=== PATIENT | female | born 1950 | race Caucasian/White ===

== ENCOUNTER → 2016-05-21 | Outpatient (CLI) | payer OTHER ==
--- NOTE | 2016-05-21 14:59 | MAMMOGRAPHY REPORT ---
BILATERAL DIGITAL SCREENING MAMMOGRAM TOMOSYNTHESIS WITH CAD: 05/21/2016 CLINICAL HISTORY: Routine screening examination. TECHNIQUE: Breast tomosynthesis in addition to standard 2D mammography was performed. Current study was also evaluated with a Computer Aided Detection (CAD) system. COMPARISON: Comparison is made to exams dated: 05/17/2015 mammogram, 05/08/2013 mammogram, 04/27/2010 mammogram, 05/06/2012 mammogram, 05/01/2011 mammogram, and 04/25/2009 mammogram - [facility]. BREAST COMPOSITION: There are scattered areas of fibroglandular density in both breasts. FINDINGS: There is there is a 3.8 mm nodular asymmetry in the medial, middle one third of the right breast, only seen on the CC view, for which additional spot compression tomosynthesis views and pos sibly ultrasound are recommended. No other suspicious mass, architectural distortion or cluster of microcalcifications is seen bilater ally. IMPRESSION: ACR BI-RADS CATEGORY 0: INCOMPLETE EVALUATION: NEED ADDITIONAL IMAGING EVALUATION The 3.8 mm nodular asymmetry in the medial right breast needs additional evaluation. The patient will be called to schedule an appointment. Approximately 10% of breast cancers are not detected with mammography. A negative mammographic repor t should not delay biopsy if a clinically suggestive mass is present. Antoinette Bradford M.D. ay/:05/21/2016 08:25:35 Oval Or Circular Glass Cutter: Inessa MORALES)(Abdoulaye), [facility] letter sent: Addl Imaging 0 BI-RADS Code: ACR BI-RADS Category 0: Incomplete Evaluation: Need Additional Imaging Evaluation
== END | disposition home or self-care (01) ==
LOC: C.MAMM 07:44
PROVIDERS: ATTEND Obstetrics & Gynecology
DX: Z12.31 Encounter for screening mammogram for malignant neoplasm of breast (principal); N64.9 Disorder of breast, unspecified

== ENCOUNTER → 2016-05-29 | Outpatient (CLI) | payer OTHER ==
--- NOTE | 2016-05-29 15:37 | MAMMOGRAPHY REPORT ---
UNILATERAL RIGHT DIGITAL DIAGNOSTIC MAMMOGRAM TOMOSYNTHESIS AND TARGETED RIGHT ULTRASOUND: 05/29/2016 CLINICAL HISTORY: 66-year-old woman called back from screening mammography for a 4 mm nodular asymme try in the medial right breast. TECHNIQUE: Spot compression right CC and MLO tomosynthesis images were obtained. COMPARISON: Comparison is made to exams dated: 05/21/2016 mammogram, 05/17/2015 mammogram, 05/08/2013 mammogram, 04/25/2009 mammogram, 04/27/2010 mammogram, and 05/01/2011 mammogram - [facility]. BREAST COMPOSITION: There are scattered areas of fibroglandular density in the right breast. FINDINGS: There is persistence of a 4 mm lobulated, partially circumscribed mass in the medial, mid dle one third of the right breast, best seen on the spot compression CC tomosynthesis images no asso ciated architectural distortion or obvious microcalcification. Further evaluation with targeted ult rasound was performed. Real-time high-resolution sonographic evaluation was performed throughout the medial right breast. In the 2:00 axis, 3 cm from the nipple, there is a small mixed solid and cystic mass, possibly repre senting an intraductal or intracystic mass. In total this mass measures 4.3 x 2.7 x 3.6 mm, and it correlates well with the mammographic mass. Given the mixed solid and cystic nature is indeterminat e and definitive characterization with tissue sampling is recommended. There is superficial increas ed echogenicity within the 5:00 right breast, 2 cm from the nipple, which may represent a small foca l area of fat necrosis. This is incidentally identified. IMPRESSION: ACR BI-RADS CATEGORY 4B: INTERMEDIATE SUSPICION FOR MALIGNANCY, TARGETED ULTRASOUND ACR BI-RADS CATEGORY 4B: INTERMEDIATE SUSPICION FOR MALIGNANCY 1. Ultrasound guided core needle biopsy is recommended for a small mixed solid and cystic 4 mm mass in the 2:00 right breast, thought to correlate with a mammographic mass, as this could represent a papillary lesion. 2. Probable fat necrosis in the superficial 5:00 right breast, incidentally identified. This can b e reevaluated at the time of core biopsy. These results and recommendations were discussed with the patient at the time of the exam. She tent atively scheduled the biopsy prior to leaving our department. Approximately 10% of breast cancers are not detected with mammography. A negative mammographic repor t should not delay biopsy if a clinically suggestive mass is present. Antoinette Bradford M.D. ay/:05/29/2016 14:33:55 Area Director: Jennifer Petty RT(R)(M), [facility] letter sent: Abnormal 4/5 BI-RADS Code: ACR BI-RADS Category 4B: Intermediate Suspicion For Malignancy Ultrasound BI-RADS: AC R BI-RADS Category 4B: Intermediate Suspicion For Malignancy
== END | disposition home or self-care (01) ==
LOC: C.MAMM 13:38
PROVIDERS: ATTEND Obstetrics & Gynecology
DX: N63 Unspecified lump in breast (principal); N64.89 Other specified disorders of breast

== ENCOUNTER → 2016-06-05 | Outpatient (CLI) | payer OTHER ==
--- NOTE | 2016-06-05 11:54 | Discharge Instructions ---
Discharge Instructions Procedure Procedure Date: Jun 05, 2016. Reason for visit: Right Mass. Discharge Discharge Date: Jun 05, 2016. Discharge Diagnosis: post right breast ultrasound guided core biopsy Medications Restart Stopped Medication(s): May restart Aspirin today Instructions Activity Recommendations: Additional Limitations (see below) Return to School/Work: no limitations Recommended Home Diet: No Limitations Provider Instructions: ACTIVITY RECOMMENDATIONS: * No lifting, pushing, pulling or exercising the affected side for three days. RETURN TO SCHOOL/WORK: * You may return to work/school after the procedure, but do not perform any strenuous activities for 24 to 48 hours. MEDICATIONS: * Tylenol (two 325 mg) every four to six hours if needed for mild pain (if not allergic to Tylenol). DIET: * Resume previous diet. SPECIAL CARE INSTRUCTIONS: * Keep biopsy site dry for 24 hours. May shower after 24 hours, but do not soak (bathe) incision. * May remove Tegaderm (plastic patch) tomorrow AFTER showering. * Leave the steri-strips on for one week. Allow the steri-strips to fall off by themselves. If not off after one week, you may remove them. You may place a Bandaid crosswise over the strips, if desired. * Apply ice 10 minutes on and 10 minutes off as needed. * Wear a bra at bedtime to sleep more comfortably for 2-3 days. * Your referring physician should have the results after approximately 5 to 7 business days. * Call for unusual bleeding, fever, drainage, etc or if you have any questions call [phone] during normal business hours or after hours call Dr Bradford, . FOLLOW UP VISIT: Follow-up with Referring Physician as scheduled. Allergies Uncoded Allergies: NKDA (Allergy, Unknown, 12/26/02) Olive Trejo Recommendations: Call your doctor if: * Temperature above 101 degrees * Pain not relieved by pain medicine ordered * There is increased drainage or redness from any incision * You have any unanswered questions or concerns. Your Doctors Instructions noted above were prepared by provider Antoinette Bradford. Patient Signature Section: Patient Instructions Signature Page Jennifer Carreon Patient (or Guardian) Signature/Date: I have read and understand the instructions given to me by my caregivers. Caregiver/RN/Doctor Signature/Date: The above-named patient and/or guardian has received patient instructions on this date. + Original Patient Signature Page (only) stays with chart. Please make copy for patient.
--- NOTE | 2016-06-05 13:07 | MAMMOGRAPHY REPORT ---
UNILATERAL RIGHT DIGITAL DIAGNOSTIC MAMMOGRAM: 06/05/2016 CLINICAL HISTORY: Status post ultrasound-guided core biopsy in the 2:00 right breast. Please refer to the report from right breast ultrasound guided core biopsy performed at the [facility] for full detail. IMPRESSION: POST PROCEDURE IMAGING FOR MARKER PLACEMENT Please refer to the report from right breast ultrasound guided core biopsy performed at the same [facility] for full detail. Approximately 10% of breast cancers are not detected with mammography. A negative mammographic repor t should not delay biopsy if a clinically suggestive mass is present. Antoinette Bradford M.D. ay/:06/05/2016 11:56:30 Portable Track Crew Chief: Kimberlyn Farris, [facility] BI-RADS Code: Post Procedure Imaging For Marker Placement
--- NOTE | 2016-06-05 13:07 | MAMMOGRAPHY REPORT ---
THIS REPORT HAS BEEN AMENDED. ULTRASOUND GUIDED BIOPSY RIGHT BREAST: 06/05/2016 CLINICAL HISTORY: 66-year-old woman presents for biopsy of a mixed solid and cystic mass in the 2:00 right breast. COMPARISON: Comparison is made to exams dated: 05/29/2016 ultrasound, 05/21/2016 mammogram, 05/17/2015 mammogram, 05/11/2014 mammogram, 05/08/2013 mammogram, and 05/06/2012 mammogram - [facility]. PATIENT CONSENT: The procedure, risks and benefits were discussed with the patient and informed writ ten consent was obtained. Specific risks to this procedure include: bleeding, infection, puncture of adjacent structure, nontargeted biopsy, metal allergy, sampling error and medication reaction. PROCEDURE DESCRIPTION: Repeat targeted ultrasound was performed in the 2:00 and 5:00 axes of the rig ht breast to reevaluate the indeterminate solid and cystic mass in the 2:00 breast and possible fat necrosis in the 5:00 breast. The small mixed solid and cystic mass is again seen in the 2:00 breast . In the 5:00 breast, there is increased echogenicity in a subdermal fat lobule with small hypoecho ic linear area within, most likely represent fat necrosis. This does not appear significantly quach ed from 05/29/2016. A time out was performed and the right breast was agreed as the site of biopsy. The skin was prepped and draped in the usual sterile fashion. The mixed solid and cystic mass in the 2:00 right breast w as chosen as the target for biopsy. Subcutaneous and intraparenchymal 1% buffered lidocaine, without epinephrine, was administered as local anesthesia. A skin incision was made. Through the incision, 5 samples were taken with a 14 gauge Achieve biopsy device. A metallic marker was placed at the bio psy site. Hemostasis was achieved after manual compression. The patient tolerated the procedure well and there was no immediate complication. The symptoms were sent to the pathology department in an appropriately labeled container. Postprocedure right CC and ML views were obtained. There is asymmetry and skin thickening in the me dial right breast in the area of recent biopsy. However, no biopsy marker clip is identified sugges ting the biopsy marker did not deploy properly. Therefore the dressing was removed from the right b reast. Another ribbon-shaped metallic biopsy marker was placed at the site of the biopsy. Another right cc view was performed which now demonstrates a ribbon shaped metallic biopsy marker in place a nd no significant post 5 mL hematoma. When comparing to the original screening mammogram from 05/21, the biopsy marker aligns with the mammographic mass in question, confirming mammographicsono graphic correlation. IMPRESSION: ULTRASOUND GUIDED BIOPSY Status post ultrasound guided core needle biopsy of an indeterminate solid and cystic mass in the 2: 00 right breast, with biopsy marker placed at the site. The patient will receive notification of the biopsy results from her referring physician. Pending pathology results, a short interval follow-up is recommended for the probable fat necrosis i dentified in the 5:00 right breast, 2 cm from the nipple, that appears similar to the ultrasound per formed on 05/29/2016. Antoinette Bradford M.D. ay/:06/05/2016 12:28:20 Mica Plate Layer: Kimberlyn Farris, [facility] AMENDMENT: 06/21/2016 Antoinette Bradford M.D. Pathology results from the ultrasound-guided core biopsy of a mixed solid and cystic mass in the 2:0 0 right breast yielded focal intraductal hyperplasia and focal duct ectasia. No tumor seen. The pa thology results are concordant with the imaging appearance and the biopsy marker clip aligned with t he mammographic abnormality in question. Therefore this finding is considered benign and does not n eed further assessment. However, incidentally seen on the 05/29/2016 ultrasound of the right breast was a possible area of fat necrosis in the 5:00 axis for which a six-month follow-up diagnostic rig ht mammogram and ultrasound is recommended. Therefore this follow-up recommendation still stands fo r the benign-appearing sonographic finding in the 5:00 breast.
== END | disposition home or self-care (01) ==
LOC: C.MAMM 11:05
PROVIDERS: ATTEND Obstetrics & Gynecology
DX: N63 Unspecified lump in breast (principal); N60.41 Mammary duct ectasia of right breast

== ENCOUNTER → 2017-01-01 | Outpatient (CLI) | payer OTHER ==
--- NOTE | 2017-01-01 16:43 | MAMMOGRAPHY REPORT ---
UNILATERAL RIGHT DIGITAL DIAGNOSTIC MAMMOGRAM TOMOSYNTHESIS WITH CAD AND TARGETED RIGHT ULTRASOUND: CLINICAL HISTORY: 66-year-old woman presents after a benign ultrasound guided core biopsy in the 2:00 right breast. At the time of biopsy, possible fat necrosis was noted on ultrasound in the 5:00 righ t breast, 2 cm from the nipple. TECHNIQUE: Right breast tomosynthesis in addition to standard 2D mammography was performed. Current s viktoriya was also evaluated with a Computer Aided Detection (CAD) system. COMPARISON: Comparison is made to exams dated: 06/05/2016 mammogram, 06/05/2016 ultrasound biopsy, 2016 mammogram, 05/21/2016 mammogram, 05/11/2014 mammogram, and 05/08/2013 mammogram - [facility]. BREAST COMPOSITION: There are scattered areas of fibroglandular density in the right breast. FINDINGS: There is a stable ribbon shaped metallic biopsy marker in the 2:00 right breast, denoting t he site of prior benign ultrasound guided core biopsy. No suspicious mass, architectural distortion or cluster of microcalcifications is seen throughout the right breast. Targeted ultrasound was performed in the 5:00 right breast, 2 cm from the nipple, to evaluate for the tiny, superficial hypoechoic mass with echogenic halo, thought to represent fat necrosis. No curren t abnormality or suspicious mass is identified. The interval resolution confirms benign fat necrosis and no further follow-up is needed at this time. IMPRESSION: ACR BI-RADS CATEGORY 2: BENIGN, TARGETED ULTRASOUND ACR BI-RADS CATEGORY 2: BENIGN Stable postop see changes in the 2:00 right breast. No abnormality is currently identified in the 5: 00 right breast on ultrasound, confirming benignity. There mammographic or targeted sonographic evid ence of malignancy. Return to annual mammogram screening schedule is recommended. The patient has be en verbally notified of the results. Approximately 10% of breast cancers are not detected with mammography. A negative mammographic report should not delay biopsy if a clinically suggestive mass is present. Antoinette Bradford M.D. ay/:01/01/2017 14:16:33 Retirement Plan Counselor: Kimberlyn Farris, [facility] letter sent: Normal 1/2 BI-RADS Code: ACR BI-RADS Category 2: Benign Ultrasound BI-RADS: ACR BI-RADS Category 2: Benign
== END | disposition home or self-care (01) ==
LOC: C.MAMM 10:56
PROVIDERS: ATTEND Obstetrics & Gynecology
DX: R92.8 Other abnormal and inconclusive findings on diagnostic imaging of breast (principal)

== ENCOUNTER → 2017-01-04 | Outpatient (CLI) | payer OTHER | END | disposition home or self-care (01) | LOC: C.PAPS 14:14 | PROVIDERS: ATTEND Obstetrics & Gynecology | DX: Z12.4 Encounter for screening for malignant neoplasm of cervix (principal); Z78.0 Asymptomatic menopausal state ==

== ENCOUNTER → 2017-07-16 | Outpatient (CLI) | payer OTHER ==
--- NOTE | 2017-07-16 14:58 | MAMMOGRAPHY REPORT ---
BILATERAL DIGITAL SCREENING MAMMOGRAM TOMOSYNTHESIS WITH CAD: 07/16/2017 CLINICAL HISTORY: Routine screening. Patient has no complaints. TECHNIQUE: Breast tomosynthesis in addition to standard 2D mammography was performed. Current study was also evaluated with a Computer Aided Detection (CAD) system. COMPARISON: Comparison is made to exams dated: 01/01/2017 ultrasound, 01/01/2017 mammogram, 06/05/2016 martina mogram, 06/05/2016 ultrasound biopsy, 05/29/2016 mammogram, and 05/21/2016 mammogram - [facility]. BREAST COMPOSITION: There are scattered areas of fibroglandular density in both breasts. FINDINGS: No suspicious masses, calcifications, or areas of architectural distortion are noted in ei ther breast. There has been no significant interval change compared to prior exams. A biopsy marker clip is again noted within the right upper inner quadrant. IMPRESSION: ACR BI-RADS CATEGORY 2: BENIGN There is no mammographic evidence of malignancy. A 1 year screening mammogram is recommended. The pa tient will receive written notification of the results. Approximately 10% of breast cancers are not detected with mammography. A negative mammographic report should not delay biopsy if a clinically suggestive mass is present. Sangeeta Denton M.D. /:07/16/2017 12:38:49 Supervisor Contact Lens: Jocelyn MORALES)(Abdoulaye), [facility] letter sent: Normal 1/2 BI-RADS Code: ACR BI-RADS Category 2: Benign
== END | disposition home or self-care (01) ==
LOC: C.MAMM 12:03
PROVIDERS: ATTEND Family Medicine
DX: Z12.31 Encounter for screening mammogram for malignant neoplasm of breast (principal)